=== PATIENT | female | born 1930 | race Caucasian/White ===

== ENCOUNTER 2016-05-11 09:24 | Emergency (ER) | payer MEDICARE, OTHER ==
[~2016-05-11] VITALS: Ht 170.2 cm; Wt 57.0 kg
[2016-05-11 09:28] VITALS: BP 133/75; PULSE 81; RESP 15; O2SAT 98
--- NOTE | 2016-05-11 09:48 | ED.REPORT ---
HPI-General Illness Date of Service May 11, 2016 ED Provider: Keaton Easley MD 85 year old female with a history of dementia who presents to the ED due to SOB after eating breakfast a few hours ago. Pt takes vitamins daily, and this occurred after taking these. Pt states it came on suddenly and describes it as she felt like she couldn't swallow. Currently her symptoms have resolved and she has no SOB or difficulty swallowing. Pt denies CP, N/V/D fever, chills, throat burning and abd pain. Pt denies any hx of CAD, DVT/PE, GERD. Nursing Notes Stated Complaint: CHEST PAIN Chief Complaint: Chest Pain Nursing Notes Reviewed: Yes Allergies: Coded Allergies: No Known Allergies (Unverified , 05/11/16) General Time Seen by MD: 09:34 Chief Complaint Other (SOB/dysphagia) Hx Obtained From: Patient Arrived By: Wheelchair Sudden in Onset?: Yes Onset Occurred: 1 - 4 hours ago Symptom Duration: Since onset Severity: Current: No pain currently Associated with: Denies: Chest pain, Cough, Fever Pertinent Negative: Relieved by nothing Past Medical History Past Medical History Pt states that she takes vitamin but denies any other medications. Reports: Dementia Past Surgical History None reported today Smoking History Unknown if Ever Smoker Review of Systems Full Review of Systems Constitutional: Denies: Chills, Fever Respiratory: Reports: Shortness of breath, Denies: Non-productive cough Cardiovascular: Denies: Chest pain, Dyspnea on exertion GI: Reports: Dysphagia, Denies: Abdominal pain, Diarrhea, Nausea, Vomiting Neurologic: Denies: Headache Complete sys rev & neg: except as marked. Physical Exam Vital Signs Vital Signs Date Time Temp Pulse Resp B/P Pulse Ox O2 Delivery O2 Flow Rate FiO2 05/11/16 09:28 36.8 81 15 133/75 98 Room Air Initial VS: Reviewed General/Constitutional: Well-developed, Well-nourished Head / Eyes: Atraumatic, Normocephalic, PERRL ENT: Mucous membranes moist, Conjunctiva normal, No scleral icterus Neck: Supple, Non-tender, Full range of motion Cardiovascular: Regular rate & rhythm, Heart sounds normal, Intact distal pulses Abdomen / GI: Soft, Non-tender, No guarding, No rebound, No distention Extremities: Vascular intact, Neuro intact, No swelling (at calf), No tenderness (at calf) Skin: Warm, Dry, No cyanosis Neurologic: Alert, Oriented Psychiatric: Mood/affect normal, Behavior normal, Normal thought content Respiratory / Chest: Breath sounds NL, Breath sounds = bilat, No respiratory distress, No rales, No rhonchi, No wheezing, No stridor Speech normal and fluent Interpretation & Diagnostics Lab Results Interpretation Result Diagram: 05/11/16 1040 05/11/16 1040 Test 05/11/16 10:40 05/11/16 10:47 White Blood Count 7.0th/mm3 (3.8-10.1) Red Blood Count 4.60mil/mm3 (3.90-5.20) Hemoglobin 13.8g/dL (12.0-15.6) Hematocrit 42.8% (35.0-46.0) Mean Corpuscular Volume 93.0fL (81-100) Mean Corpuscular Hemoglobin 30.0pg (27.0-35.0) Mean Corpuscular Hemoglobin Concent 32.2% (32.0-37.0) Red Cell Distribution Width 13.9% (12.3-15.4) Platelet Count 186bil/L (150-400) Neutrophils (%) (Auto) 58.0% (40-74) Lymphocytes (%) (Auto) 30.4% (14-46) Monocytes (%) (Auto) 8.1% (4-12) Eosinophils (%) (Auto) 3.0% (0-5) Basophils (%) (Auto) 0.4% (0-3) Sodium Level 139mEq/L (134-144) Potassium Level 3.9mEq/L (3.5-5.2) Chloride Level 100mEq/L (97-108) Carbon Dioxide Level 27mmol/L (18-29) Blood Urea Nitrogen 20mg/dL (8-27) Creatinine 0.60mg/dL (0.57-1.00) Estimat Glomerular Filtration Rate 135mL/min (>59) Glucose Level 96mg/dL (60-99) Calcium Level 9.5mg/dL (8.5-10.1) Magnesium Level 1.9mg/dL (1.6-2.6) Total Bilirubin 0.5mg/dL (0.0-1.2) Aspartate Amino Transf (AST/SGOT) 30U/L (0-50) Alanine Aminotransferase (ALT/SGPT) 21U/L (0-32) Alkaline Phosphatase 66U/L (25-165) Troponin T 0.010ug/L (0.0-0.011) Total Protein 6.9g/dL (6.4-8.4) Albumin 4.0g/dL (3.4-5.0) Hold Herrera Top Tube Received (Received) General Lab Results Interp 1: Labs reviewed ECG Interpretation ECG Interpretation: LAD, Borderline ST elevation of less than 1mm isolated to lead V2 otherwise no other ST segment changes. There is no prior available for comparison. Time: 09:57 Interpreted by: ED physician Normal ECG Interpretation: Normal rate (74), Normal sinus rhythm X-Ray Chest Interpretation Chest Xray Interpretation: IMPRESSION: No acute cardiopulmonary disease. Right hemidiaphragm eventration. Dictated by: Marcie Kasper M.D. on 05/11/2016 at 11:15 View: Portable, 1 view Interpretation / Wet Read by: Interpret - Radiologist Re-Eval/Medical Decision Med Decision/Clinical Course In summary, the patient is an 85-year-old female in generally excellent health who presents with very vague symptoms of transient "difficulty swallowing" and "difficulty breathing" that occurred in the setting of swallowing her multivitamin pills during breakfast this morning. She reports that the symptoms were transient in nature lasting seconds to minutes and have now completely resolved. Here in the emergency department she is completely symptom -free and requests to be discharged home. She denies cough, fevers, chills, chest pain or any ongoing symptoms. She has no cardiac history. EKG was obtained and interpreted by myself as documented above and demonstrated no convincing acute ischemic changes. CXR: Obtained, reviewed and interpreted by myself shows no evidence of acute infiltrates, effusions or pneumothorax. Cardiac and mediastinal silhouette normal. No bony or soft tissue abnormalities. Her studies including troponin, CBC and CMP were all unremarkable. The patient's presentation is somewhat unclear and she is quite a vague historian. I suspect that she may have had a transient esophageal foreign body that is now passed. The patient's symptoms, initial workup and history are unconvincing for acute coronary syndrome or pulmonary embolism. There are no findings of pneumonia or pneumothorax. She is able to swallow with ease at this time there is no evidence of ongoing esophageal foreign body. I feel that the patient is appropriate for discharge home. Follow up in a term options were provided to the patient as well as her family members and she was discharged in stable condition. Time of Eval: 10:29 Re-Evaluation/Progress Note: Pt is feeling well in her bed. Updated pt. Awaiting labs. Time of Eval: 11:14 Re-Evaluation/Progress Note: Updated pt of labs, ECG and imaging results. Discussed plan for discharge and follow up. All questions addressed. Counseled Regarding: Diagnosis, Lab results, Need for follow-up, When/why to return to ED Discharge & Departure Primary Impression: Esophageal foreign body Encounter type: initial encounter Qualified Code: T18.108A - Unspecified foreign body in esophagus causing other injury, initial encounter Additional Impressions: Shortness of breath Difficulty swallowing Dysphagia type: unspecified Qualified Code: R13.10 - Dysphagia, unspecified Disposition: Home Discharge Condition All VS Reviewed: Yes Condition: Improved Additional Instructions: Thank you for seeking care at [facility] emergency room. It is difficult for us to make definitive diagnoses in the ED but we believe that you experienced shortness of breath and difficulty swallowing due to an esophageal foreign body. Our primary goal today in the ED was to evaluate you for any life-threatening conditions. Your evaluation was reassuring. There were no signs of heart attack or any serious life threatening cause. You should follow-up with your primary doctor. You should return to the ED immediately if you develop fevers, vomiting, cough , shortness of breath, chest pain, lightheadedness, weakness or any other concerning signs or symptoms. Thank you for letting us partake in your care today. Scribe Attestation Portions of this note were transcribed by Brigid Lee. I, (Dr. Easley) personally performed the history, physical exam and medical decision-making; I reviewed and confirmed the accuracy of the information in the transcribed note. Signed by: Brigid Lee. Forest, 05/11/2016, 114Keaton Juarez MD May 11, 2016 09:48 Brigid Lee May 11, 2016 09:56
[2016-05-11 10:55] LABS: BASOPHILS % (AUTO) 0.4 % (0-3); MONOCYTES % (AUTO) 8.1 % (4-12); Platelet Count 186 bil/L (150-400)
--- NOTE | 2016-05-11 11:19 | DRSVH ---
PROCEDURE: X-RAY CHEST ONE VIEW, PORTABLE ([id number]) INDICATIONS: Chest pain. TECHNIQUE: One view of the chest was acquired. COMPARISON: None. FINDINGS: Surgical changes and devices: None. 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 No pleural effusions or pneumothorax. L ungs are clear. Mediastinum: Mediastinal contours appear normal. Heart size is normal. Bones and chest wall: No suspicious bony lesions. Overlying soft tissues appear unremarkable. IMPRESSION: No acute cardiopulmonary disease. Right hemidiaphragm eventration. Dictated by: Marcie Kasper M.D. on 05/11/2016 at 11:15 Approved by: Marcie Kasper M.D. on 05/11/2016 at 11:18
[2016-05-11 11:26] LABS: TROPONIN T 0.01 ug/L (0.0-0.011)
[2016-05-11 11:37] LABS: Magnesium 1.9 mg/dL (1.6-2.6)
== END 2016-05-11 11:56 | disposition home or self-care (01) ==
LOC: SED 09:24
DX: T18.198A Other foreign object in esophagus causing other injury, initial encounter (principal); Y93.89 Activity, other specified; Y92.89 Other specified places as the place of occurrence of the external cause; Y99.8 Other external cause status; R06.02 Shortness of breath; F03.90 Unspecified dementia, unspecified severity, without behavioral disturbance, psychotic disturbance, mood disturbance, and anxiety